=== PATIENT | female | born 1980 | race Caucasian/White ===

== ENCOUNTER 2016-12-04 12:27 | Emergency (ER) | payer OTHER ==
[~2016-12-04 12:27] MED LIST: AMBIEN DPS10 MG PO; COLACE-DPS100 MG PO; MOTRIN-DPS400 MG PO; PERCOCET 5 DPS1 TAB PO; PRILOSEC DPS20 MG PO
--- NOTE | 2016-12-16 07:46 | ER ---
ADMIT: 12/04/2016 RM/LOC: ER [facility] MR#: [id number] [address] [id number] ANTONY MELISSA [address] [place] [id number] Emergency Room Report SEX: F AGE: 36 : 1980 DATE: 12/04/2016 ADDENDUM: This patient comes into the ER because at 9 a.m. this morning, she started with a burning-type pain in her epigastric area. She has had no vomiting but is nauseated. She was able to eat today. On physical exam, her pain is in the epigastric area. There is no rebound, tenderness, or guarding. No tenderness to percussion from either flank area. CBC and BMP were normal. Her liver enzymes were slightly elevated with her AST being 47 and ALT 85. Ultrasound of her gallbladder was normal. I wrote a prescription for [place] and omeprazole and we will have her follow up with Dr. Ortega next week if she is not feeling better. Please see my T-sheet. EMILY Hazel / Kodi Kirby MD / luis JOB #: [id number] CC: Kodi Kirby MD, Attending Physician Francisco Javier Ortega DO, Family Physician
== END 2016-12-04 15:40 | disposition home or self-care (01) ==
LOC: ER 12:27
DX: R10.13 Epigastric pain (principal); F17.210 Nicotine dependence, cigarettes, uncomplicated; Z90.710 Acquired absence of both cervix and uterus; Z90.49 Acquired absence of other specified parts of digestive tract